=== PATIENT | female | born 1960 | race Caucasian/White ===

== ENCOUNTER 2017-02-17 06:03 | Observation (INO) | payer OTHER ==
--- NOTE | ~2017-02-17 | OP ---
Record Of Operation [facility] [address] [place]. [address] NAME: DIANE BENZ : 56 STATUS : ADM Laure PAT#: [id number] AGE: 57 ADM/REG DATE : 02/17/17 MR#: [id number] REPORT SERV DATE: 02/17/17 DICTATED BY: PETER CABALLERO DATE: 02/17/17 REPORT STATUS : Draft TRANSCRIBED BY: MODL DATE: 02/17/17 DATE OF PROCEDURE: 02/17/2017 PROCEDURE: PTCA. INDICATION FOR THIS PROCEDURE: Progressive angina with a high-grade stenosis of the proximal to mid LAD. A 6 JL4 coronary guiding catheter was advanced to the left coronary ostium. Left coronary injection has confirmed the presence of a 90% calcified segmental stenosis of the proximal to mid LAD involving the origin of the first diagonal branch. A 0.014 Luge Guidewire was passed in the distal LAD and a 0.014 Luge Guidewire was passed into the adjacent diagonal branch. An initial attempt to pass a 3.0/10 cutting balloon into the proximal LAD was unsuccessful. The 6 JL4 coronary guiding catheter was exchanged for 6 JL 4.5 coronary guiding catheter for better backup support. The lesion was initially dilated with a 2.5/15 Emerge balloon at up to 15 atmospheres pressure for 15 seconds in duration. Using a GuideLiner for backup support, the vessel was successfully dilated with a 3.0/10 cutting balloon at up to 15 atmospheres pressure for 30 seconds in duration. After dilating the LAD, it was noted there had been some plaque shift to the adjacent first diagonal branch and appeared to be a small linear dissection at the ostium of the vessel. A 0.014 Luge Guidewire was passed into the distal diagonal branch. The diagonal branch was then dilated with 2.0/12 Emerge balloon at up to 8 atmospheres pressure for 30 seconds in duration. A 3.0/24 Synergy stent was then deployed across the lesion in the LAD at up to 15 atmospheres pressure for 15 seconds in duration. Following removal of balloon and guidewires, final left coronary artery injection showed 0% residual stenosis at the site of stent implantation in the LAD, and KELSEY grade 3 distal flow in both the distal LAD and first diagonal branch. Guiding catheter was removed, and the sheath left in place. There are no apparent complications. IMPRESSION: Successful cutting balloon PTCA and placement of drug-eluting stents and proximal to mid LAD. KIMMY/MODKath Peter Caballero M.D., Suzie / [id number] CC: Peter Caballero M.D., FESTUS KRISHNAMURTHY
--- NOTE | ~2017-02-17 | OP ---
Record Of Operation [facility] [address] [place]. [address] NAME: DIANE BENZ : 56 STATUS : ADM Laure PAT#: [id number] AGE: 57 ADM/REG DATE : 02/17/17 MR#: [id number] REPORT SERV DATE: 02/18/17 DICTATED BY: PETER CABALLERO DATE: 02/17/17 REPORT STATUS : Draft TRANSCRIBED BY: MODL DATE: 02/17/17 DATE OF PROCEDURE: 02/17/2017 PROCEDURE: Cardiac catheterization. INDICATION FOR THIS PROCEDURE: Progressive angina and pulmonary hypertension. DESCRIPTION OF PROCEDURE: The patient was prepped and draped in the usual sterile fashion. Moderate IV sedation was administered. Adequate anesthesia was obtained over the right femoral vessels using lidocaine infiltration. Using the Seldinger technique, a 6-Kyrgyz sheath was placed in the right femoral artery and a 7-Kyrgyz sheath placed in the right femoral vein. A 6-Kyrgyz pigtail catheter was advanced through the arterial sheath into the left ventricular cavity. A thermodilution Alvo-Karen catheter was advanced under fluoroscopic guidance through the venous sheath to the left pulmonary artery. Cardiac outputs were obtained by thermodilution technique. A mixed venous O2 saturation and an arterial O2 saturation were obtained. Simultaneous left ventricular end-diastolic pressure and pulmonary capillary wedge pressure were recorded. Right heart pullback pressures were then obtained. A left ventricular angiogram was then obtained in the JUSTICE projection. The pigtail catheter was then exchanged for a 6 FL4 coronary catheter which was advanced to the left coronary ostium. Left coronary artery injections were performed in multiple views. Left groin catheter was then exchanged for a 6 FR4 coronary catheter which was advanced to the right coronary ostium. Right coronary artery injections were then performed in the UZBEK and JUSTICE views. Right coronary catheter was removed, the sheath was left in place in anticipation of subsequent angioplasty. No apparent complications. RESULTS: 1. Pressures: Mean right atrial pressure was 4 mmHg. Right ventricular pressure was 30/5 mmHg. Pulmonary artery pressure was 30/12 mmHg. Mean pulmonary capillary wedge pressure was 8 mmHg. Left ventricular pressure was 100/8 mmHg. Aortic pressure was 100/60 mmHg. 2. Cardiac output by thermodilution technique was 4.65 L/minute. 3. Oxygen saturations: Pulmonary artery oxygen saturation was 61%. Aortic oxygen saturation was 93%. 4. Left ventricular angiogram: The left ventricle contracted normally with an estimated ejection fraction of 70%. 5. Coronary arteriograms: The left main coronary artery was normal. Left anterior descending coronary artery had a calcified segmental stenosis in its proximal to midportion involving the origin of the first diagonal branch which was up to 90% severity. Left circumflex coronary artery was normal. The right coronary artery was a dominant vessel, was also normal. IMPRESSION: 1. High-grade segmental calcified stenosis of proximal to mid LAD involving the origin of the first diagonal branch. 2. Normal left ventricular contractility. 3. Normal right heart pressures and oxygen saturations. Record Of Operation [facility] [address] [facility] [place]. [address] NAME: DIANE BENZ : 56 STATUS : ADM Laure PAT#: [id number] AGE: 57 ADM/REG DATE : 02/17/17 MR#: [id number] REPORT SERV DATE: 02/18/17 DICTATED BY: PETER CABALLERO DATE: 02/17/17 REPORT STATUS : Draft TRANSCRIBED BY: MOSES DATE: 02/17/17 PLAN: Proceed with stenting of the left anterior descending coronary artery. SS/MOSES Peter Caballero M.D., Suzie / [id number] CC: Peter Caballero M.D., MarioCLauro WALLER MD
[~2017-02-17 06:03] MED LIST: CELEXA40 MG PO; FLEX PO; KLONO5 PO; SPIRO25 PO; ZANTAC150 MG PO; ZYRTEC ALLGY10 MG PO
[2017-02-17 06:44] LABS: BASOPHILS 0.3 %; BASOPHILS ABSOLUTE 0.02 10/3/uL (0.0-0.16); EOSINOPHILS 1.1 %; EOSINOPHILS ABSOLUTE 0.07 10/3/uL (0.0-0.53); HEMATOCRIT 35.2 % (36.0-48.0); HEMOGLOBIN 11.5 g/dL (12.0-16.0); IMMATURE GRANULOCYTES 0.2 %; IMMATURE GRANULOCYTES ABSOLUTE 0.01 10/3/uL (0.0-0.11); LYMPHOCYTES 27.2 %; LYMPHOCYTES ABSOLUTE 1.69 10/3/uL (0.67-4.30); MANUAL DIFF NO %; MEAN CORPUS HGB CONC 32.7 g/dL (32.0-36.0); MEAN CORPUSCULAR HEMOGLOB 31.9 pg (26.0-34.0); MEAN CORPUSCULAR VOLUME 97.8 fL (80-100); MEAN PLATELET VOLUME 9.6 fL (9.2-13.0); MONOCYTES 9.7 %; NEUTROPHILS 61.5 %; NEUTROPHILS ABSOLUTE 3.82 10/3/uL (2.02-8.40); PLATELET COUNT 328 10/3/uL (150-400); RBC DISTRIBUTION WIDTH 14.1 % (12.0-16.0); WHITE BLOOD CELLS 6.2 10/3/uL (4.5-10.5)
[2017-02-17 06:56] LABS: BUN (BLOOD UREA NITROGEN) 13 MG/DL (6-23); CALCIUM, SERUM 9.1 MG/DL (8.5-10.4); CHLORIDE, SERUM 107 MMOL/L (96-112); CHOL/HDL RATIO(NOT ORDER) 3.5 (0-5); CHOLESTEROL 178 MG/DL (< 200); CO2 (CARBON DIOXIDE) 28 MMOL/L (24-34); CREATININE 0.74 MG/DL (0.55-1.02); GFR AFRICAN AMERICAN 103 ML/MIN (>=60); GFR NON AFRICAN AMERICAN 89 ML/MIN (>=60); GLUCOSE, SERUM 85 MG/DL (60-99); HDL CHOLESTEROL 51 MG/DL (> 49); LDL CHOLESTEROL 115 MG/DL (< 130); NON-HDL CHOLESTEROL 127 MG/DL (< 160); POTASSIUM, SERUM 3.8 MMOL/L (3.5-5.3); SODIUM, SERUM 141 MMOL/L (135-148); TRIGLYCERIDE 62 MG/DL (< 150)
[2017-02-19 03:47] LABS: CHLORIDE, SERUM 104 MMOL/L (96-112); CK-MB 13.6 NG/ML; CO2 (CARBON DIOXIDE) 28 MMOL/L (24-34); CREATININE 0.65 MG/DL (0.55-1.02); GFR AFRICAN AMERICAN 113 ML/MIN (>=60); GFR NON AFRICAN AMERICAN 97 ML/MIN (>=60); GLUCOSE, SERUM 101 MG/DL (60-99); POTASSIUM, SERUM 4.4 MMOL/L (3.5-5.3); SODIUM, SERUM 139 MMOL/L (135-148)
[2017-02-19 03:48] LABS: BUN (BLOOD UREA NITROGEN) 9 MG/DL (6-23); CPK 228 U/L (0-200); TROPONIN I 9.24 NG/ML (<0.05)
[2017-02-19] MEDS ORDERED: BRILINTA90 MG PO (09:29)
[2017-02-19] MEDS ORDERED: PRIN2.5 PO (09:29)
[2017-02-19] MEDS ORDERED: COREG3 PO (09:30)
[2017-02-19] MEDS ORDERED: LIPITOR40 PO (09:30)
== END 2017-02-19 10:06 | disposition home or self-care (01) ==
LOC: CORLMH 06:03 → SSU1 06:09
PROVIDERS: Internal Medicine Interventional Cardiology
DX: I25.118 Atherosclerotic heart disease of native coronary artery with other forms of angina pectoris (principal); D64.9 Anemia, unspecified; M19.90 Unspecified osteoarthritis, unspecified site; F32.9 Major depressive disorder, single episode, unspecified; R94.5 Abnormal results of liver function studies; R06.09 Other forms of dyspnea; I11.0 Hypertensive heart disease with heart failure; I50.9 Heart failure, unspecified; M34.9 Systemic sclerosis, unspecified; Z79.52 Long term (current) use of systemic steroids; K21.9 Gastro-esophageal reflux disease without esophagitis; Z88.8 Allergy status to other drugs, medicaments and biological substances; Z79.899 Other long term (current) drug therapy; Z83.3 Family history of diabetes mellitus; Z82.49 Family history of ischemic heart disease and other diseases of the circulatory system; Z87.891 Personal history of nicotine dependence; Z90.710 Acquired absence of both cervix and uterus; Z98.890 Other specified postprocedural states
CPT/HCPCS: 80048; 80061; 82550; 82553; 82803; 82962; 84484; 84703; 85025; 93005; 93460; 96374; 96376; 99152; 99153; A9270-GY; C1725; C1769; C1874; C1887; C1894; C9600; G0378; J0583; J1170; J2250; J3010; Q9967